=== PATIENT | female | born 1950 | race Caucasian/White ===

== ENCOUNTER 2025-02-17 13:58 | Outpatient (CLI) | payer OTHER ==
[~2025-02-17] VITALS: Ht 152.4 cm; Wt 53.5 kg
[2025-02-17 14:19] LABS: TOTAL HEMOGLOBIN 15.5 G/dl (12.0-16.0)
[2025-02-17] MEDS: albuterol 2.5 MG/3 ML nebule NEB ONE (14:57)
[2025-02-17 14:59] VITALS: PULSE 60; RESP 16; O2SAT 94
[2025-02-17 15:11] VITALS: PULSE 66; RESP 16
--- NOTE | 2025-02-21 14:22 | PROCEDURE NOTE - Respiratory ---
Procedure Note-Respiratory Providers to Copies To 1: TRISTON COPELAND MD Procedure Name: This is a complete pulmonary function study dated February 17, 2025. Hemoglobin measurement was done as part of the study. Spirometry measurements: The forced vital capacity is normal. The FEV1 shows significant reduction. The FEV1 ratio is also reduced. All of the measured flow rates show significant reduction. After inhaled bronchodilator was administered some of the flow rates show very slight improvement. Lung volume measurements: The total lung capacity and the residual volume measurements are normal. There is slight increase in the functional residual capacity measurement. Lung diffusion measurement: The DLCO measurement is moderately reduced. It is noted that the hemoglobin measurement is in the normal range. Airway resistance measurement: The airway resistance is elevated. Overall conclusion: This study is abnormal. There is evidence for moderate to severe obstructive ventilatory defect. The patient improves only very slightly with inhaled bronchodilator. Lung volume measurements suggest a mild degree of air trapping within the lungs. This is commonly seen in advanced obstructive lung disease. The DLCO measurement is moderately reduced. This raises the possibility of a significant emphysema component. All of the above findings are consistent with the patient's diagnosis of smoking-related COPD. It is strongly recommended the patient abstain from cigarette smoking. This patient should continue to use bronchodilator medication. The hemoglobin studies reveal 3.6% of the hemoglobin molecules are occupied by carbon monoxide. This suggests that the patient has recently smoked a cigarette. We have no previous studies for comparison. TRISTON COPELAND MD Feb 21, 2025 14:22
== END 2025-02-17 23:59 | disposition home or self-care (01) ==
LOC: RT 13:58
PROVIDERS: ATTEND Internal Medicine Pulmonary Disease
DX: J44.9 Chronic obstructive pulmonary disease, unspecified (principal)
CPT/HCPCS: 85018; 94060; 94727; 94729; 94760; J7030